=== PATIENT | female | born 1975 | race African-American/Black ===

== ENCOUNTER 2018-05-11 11:00 | Emergency (ER) | payer OTHER ==
[~2018-05-11] VITALS: Ht 154.9 cm; Wt 65.8 kg
[2018-05-11 13:25] VITALS: BP 126/67
[2018-05-11] MEDS ORDERED: cefTRIAXone W LIDOCAINE 500 MG IM IM ONE (14:00)
[2018-05-11] MEDS ORDERED: cefTRIAXone SOD 1,000 MG VL IM ONE (14:00)
[2018-05-11] MEDS ORDERED: LIDOCAINE 1% HCL (LOCAL ANESTH.) INJ 20ML MDV IJ ONE (14:00)
[2018-05-11] MEDS ORDERED: ALBUTEROL SULF 2.5 MG/0.5ML(0.5%) NEB SOLN NEB ONE (14:15)
[2018-05-11] MEDS ORDERED: methylPREDNISolone SOD SUCC 125 MG/2 ML VL IM ONE (14:15)
[2018-05-11] MEDS ORDERED: IPRATROPIUM BROM 0.5 MG/2.5ML INH SOL NEB ONE (14:15)
[2018-05-11] MEDS ORDERED: HYDROcodone-ACET 10/325MG TAB PO ONE (14:45)
== END 2018-05-11 15:57 | disposition home or self-care (01) ==
LOC: ER 11:02
DX: R51 Headache (principal); R05 Cough; R09.81 Nasal congestion; J45.909 Unspecified asthma, uncomplicated; E78.5 Hyperlipidemia, unspecified; M32.9 Systemic lupus erythematosus, unspecified; F17.210 Nicotine dependence, cigarettes, uncomplicated; Z90.710 Acquired absence of both cervix and uterus
CPT/HCPCS: 71046; 94640; 96372; 99283; J0696; J2001; J2930; J7611; J7644